=== PATIENT | male | born 1955 | race Caucasian/White ===

== ENCOUNTER 2016-08-09 22:50 | Inpatient (IN) | payer BC ==
--- NOTE | ~2016-08-09 | HP ---
History And Physical [id number] [place]. [address] NAME: PRISCILLA GOODMAN : 57 STATUS : ADM IN [facility]#: [id number] AGE: 61 ADM/REG DATE : 08/09/16 MR#: [id number] REPORT SERV DATE: 08/10/16 DICTATED BY: EZEQUIEL JENKINS DATE: 08/10/16 REPORT STATUS : Draft TRANSCRIBED BY: MODFrederic DATE: 08/10/16 DATE OF ADMISSION: 08/09/2016 CHIEF COMPLAINT: Chest pain. HISTORY OF PRESENT ILLNESS: The patient is a 61-year-old male with known coronary artery disease with remote balloon angioplasty to an unknown vessel many years ago. At approximately 02:00 p.m. in the afternoon on the day of admission, the patient developed acute onset of pressure-like sensation in the central chest with radiation to the neck and jaw. There was later radiation to the left arm to the level of the elbow. The patient was seen in the emergency department, treated with sublingual nitroglycerin with resolution of his chest pain. Initial cardiac enzyme was minimally elevated and the patient was admitted to the Cardiac Intensive Care Unit for non-Q-wave myocardial infarction. The patient has remained pain-free since admission. His troponin has risen to 14.9. He is absolutely asymptomatic at the time of interview and exam. PAST MEDICAL HISTORY: 1. CAD with balloon angioplasty, only to an unknown vessel in the by Dr. Houston Schilling. 2. History of diverticulitis with partial resection of the colon. 3. Hyperlipidemia. 4. GERD. 5. Hypertension. 6. Tobacco abuse. SOCIAL HISTORY: Smokes one pack of cigarettes per day. He has done so for at least for last forty five years. Occasional alcohol use. Denies illicit drug use. REVIEW OF SYSTEMS: Negative for all organ systems except per the history of present illness. FAMILY HISTORY: Noncontributory. ALLERGIES: NO KNOWN DRUG ALLERGIES. PAST SURGICAL HISTORY: Cholecystectomy and partial colectomy due to diverticulitis. PHYSICAL EXAMINATION: VITAL SIGNS: Blood pressure 132/64, pulse 102, respirations 12 and unlabored, saturating 94% on 2 liters nasal cannula, weight 128 kg. GENERAL: Obese, middle-aged male, in no acute distress. HEENT: Normal. NECK: Supple, no JVD or bruit, normal carotid upstroke bilaterally, no thyromegaly. LUNGS: Clear to auscultation and percussion. No wheezes, rales or rhonchi. No use of accessory muscles. CARDIOLOGY: Regular rhythm, normal S1, S2, no thrill, no murmur, rubs or gallops, normal History And Physical [address] [place]. [address] NAME: PRISCILLA GOODMAN : 57 STATUS : ADM IN [facility]#: [id number] AGE: 61 ADM/REG DATE : 08/09/16 MR#: [id number] REPORT SERV DATE: 08/10/16 DICTATED BY: EZEQUIEL JENKINS DATE: 08/10/16 REPORT STATUS : Draft TRANSCRIBED BY: TAMIKA DATE: 08/10/16 PMI. ABDOMEN: Bowel sounds positive, soft, nontender, and nondistended. No masses or aortic bruits. No hepatosplenomegaly or hepatojugular reflux. EXTREMITIES: No edema. Normal pulses. No clubbing or cyanosis. SKIN: Warm and dry, no significant rash. NEUROLOGIC: Alert and oriented x 3. Appropriate mood. EKG: Sinus tachycardia, rate of 106 beats per minute, evidence of old inferior wall myocardial infarction. No acute ST or T wave changes. EKG on admission, sinus rhythm, with a rate of 100 beats per minute, old inferior wall myocardial infarction and lateral ST depression. LABORATORY DATA: Sodium 139, potassium 4.6, chloride 106, BUN 14, creatinine 1.16, GFR 79, glucose 284. WBC 18.8, hemoglobin 14.2, hematocrit 42.6, platelets 283,000. Troponin 14.9. IMPRESSION: Non-Q-wave myocardial infarction - the patient is currently asymptomatic. The patient is currently heparinized. Nitroglycerin in place. Taking atorvastatin. Also on beta tevin. We have recommended cardiac catheterization on Friday, unless the patient has recurrent chest pain symptoms. The risks, benefits, alternatives of the procedure have been discussed with the patient. The patient's questions have been answered. Complications including but not limited to, , myocardial infarction, stroke, life-threatening infection, renal failure, life-threatening arrhythmia, stroke, myocardial infarction, and vascular cardiac injury with potential for emergent surgery have been discussed with the patient. The patient's questions have been answered. The patient voices understanding of these risks and desires to proceed. The patient is instructed to inform the nurse immediately for any recurrent chest pain. Should the patient have progressive recurrent chest pain, we will proceed to catheterization emergently. MICHOACANO/TAMIKA Monique Jenkins M.D. / [id number] CC: Bhakti Gutierrez
--- NOTE | ~2016-08-09 | OP ---
Record Of Operation [facility] [address] [place]. [address] NAME: PRISCILLA GOODMAN : 57 STATUS : DIS IN PAT#: [id number] AGE: 61 ADM/REG DATE : 08/09/16 MR#: [id number] REPORT SERV DATE: 09/25/16 DICTATED BY: PARTHA PAULA DATE: 09/25/16 REPORT STATUS : Draft TRANSCRIBED BY: MODL DATE: 09/25/16 DATE OF PROCEDURE: 08/14/2016 PREOPERATIVE DIAGNOSES: 1. Coronary artery disease with non-ST elevation myocardial infarction. 2. History of previous myocardial infarction with PCI. 3. Hypertension. 4. Hyperlipidemia. 5. Obesity. 6. Tobacco abuse. POSTOPERATIVE DIAGNOSES: 1. Coronary artery disease with non-ST elevation myocardial infarction. 2. History of previous myocardial infarction with PCI. 3. Hypertension. 4. Hyperlipidemia. 5. Obesity. 6. Tobacco abuse. PROCEDURE PERFORMED: 1. Urgent coronary artery bypass grafting x5, left internal mammary artery placed to left anterior descending, reverse saphenous vein graft placed to the first diagonal, reverse saphenous vein graft placed to the first obtuse marginal, right internal mammary artery placed to the second obtuse marginal, reverse saphenous vein graft placed to the posterior descending artery. 2. Bilateral internal mammary artery harvest. 3. Endoscopic vein harvest, saphenous vein from the right leg. 4. Transesophageal echocardiography. ASSISTANTS: Amparo Hankins and Aaron Palmer. ANESTHESIA: General with Dr. Lebron. 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 INDICATIONS: This is a 61-year-old gentleman with a history of tobacco use. He has a history of coronary artery disease. He had previous myocardial infarction with PCI in with Dr. Schilling. He has had no further problems until the week prior to his admission. He began experiencing discomfort in his left arm, neck, and shoulder. He presented to the emergency room, where he was found to have an abnormal EKG and elevated troponin 1. He was admitted to the hospital and medically stabilized. He underwent a cardiac catheterization, which demonstrated significant three-vessel coronary artery disease. We were asked to see the patient for possible coronary artery bypass grafting. His ventricular function was preserved. His ejection fraction was greater than 50%. Preoperative carotid duplex studies demonstrated grade 1 disease bilaterally. Preoperative STS predicted risk of mortality was 0.9%. Morbidity mortality was 11.6%, and this was Record Of Operation [id number] [place]. [address] NAME: PRISCILLA GOODMAN : 57 STATUS : DIS IN PAT#: [id number] AGE: 61 ADM/REG DATE : 08/09/16 MR#: [id number] REPORT SERV DATE: 09/25/16 DICTATED BY: PARTHA PAULA DATE: 09/25/16 REPORT STATUS : Draft TRANSCRIBED BY: TAMIKA DATE: 09/25/16 discussed with the patient. After discussion of the operations, indication, risks, they wished to proceed. FINDINGS AT OPERATION: 1. Cross-clamp time 90 minutes. Total pump time 140 minutes. 2. The LAD was a 1.75 mm moderately diseased vessel. A 2.5 mm OBRIEN was anastomosed to it with good runoff. 3. The first diagonal was 1.75 mm mildly diseased. A 3.5 mm RSVG was anastomosed to it with good runoff. 4. The first obtuse margin was 1.5 mm mildly diseased. A 3.5 mm RSVG was anastomosed to it with good runoff. 5. The second obtuse marginal was 2 mm moderately diseased. A 2.5 mm right internal mammary artery was anastomosed to it with good runoff. The mammary and its pedicle were passed into the pericardial space and brought through the transverse sinus posterior to the aorta to go to the second obtuse marginal. 6. The posterior descending artery was 1.75 mm and heavily diseased. A 3.5 mm RSVG was anastomosed to it with good runoff. 7. The vein quality was good, and all grafts had good Doppler signal at the end of the case. 8. Transesophageal echocardiography during the operation demonstrated good ventricular function without any surgically significant valvulopathy. PATHOLOGIC SPECIMENS: None. DESCRIPTION OF PROCEDURE: The patient was brought to the operating suite. General anesthesia was induced, airway secured with an endotracheal tube. Lines secured by Anesthesia. Stallworth catheter was placed. The patient's chest, abdomen, groin, and legs were prepped with Hibiclens and ChloraPrep and draped with Ioban sterile sheets. The saphenous vein was harvested from the right leg using endoscopic technique. Briefly, the vein was cut directly down upon through a 2 cm incision placed at the medial aspect of the right knee. Then, using the trocars the vessel was dissected from the surrounding subcutaneous tissue and fat. The side branches were identified, ligated, and divided with cautery. Once adequate length of vein had been dissected, a counter incision made up in the groin and in the lower leg. The vein was ligated and divided and brought through the incision. The vein quality was good. The leg was made hemostatic and closed in layers with absorbable suture, and skin closed subcuticular fashion. Then, a midline sternal incision made and the sternum opened with a saw. The left hemithorax was elevated and the endothoracic fascia was incised. The side branches of the left internal mammary artery were clipped and divided with cautery. Once the NIXON was completely dissected, the chest tube was placed in the left pleural cavity and brought out through the skin and secured. Then, the right internal mammary artery was harvested. The show retractor was reversed. The internal thoracic fascia was incised on the right side and the endothoracic fascia around the NIXON was dissected also. Side branch of the right mammary artery were clipped and Record Of Operation [facility] [address] [facility] [place]. [address] NAME: PRISCILLA GOODMAN : 57 STATUS : DIS IN PAT#: [id number] AGE: 61 ADM/REG DATE : 08/09/16 MR#: [id number] REPORT SERV DATE: 09/25/16 DICTATED BY: PARTHA PAULA DATE: 09/25/16 REPORT STATUS : Draft TRANSCRIBED BY: MODL DATE: 09/25/16 divided with cautery. Once the NIXON on the right side was completely dissected, the patient was anticoagulated with heparin and chest tube placed in the right pleural cavity and secured. Next, the David retractor was placed in the pericardium over from the innominate vein to the diaphragm, where it was T'd and tacked to the side of the chest wall. Cannulation pursestring sutures were placed and cannulation was carried out in routine manner. A retrograde cardioplegia cannula was placed in the coronary sinus. When all was in readiness, the patient was placed on cardiopulmonary bypass. The distal targets marked out on the heart as described in the findings. Then, a heart support was placed. The aorta was crossclamped and an initial dose of cold blood cardioplegia solution was given in a combination of antegrade and retrograde fashion, then a retrograde manner following proximal anastomoses. Following the first dose of cardioplegia, the heart was positioned for the PDA graft. Arteriotomy was made. The vein graft was trimmed and anastomosed to it with 7-0 Prolene. The vein graft was measured back to the right side of the ascending aorta where it was divided. We then positioned the heart for the first obtuse marginal graft. Another arteriotomy was made. The vein graft trimmed and anastomosed to it with 7-0 Prolene. This vein graft was measured back to the left side of the ascending aorta, where it was divided. Next, the proximal ends of the two vein grafts were anastomosed to 4.5 mm punch aortotomies with 6-0 Prolene. Another dose of cardioplegia was given and the heart was positioned for the diagonal graft. Arteriotomy was made. The vein graft trimmed and anastomosed to it with 7-0 Prolene. This vein graft was measured back to the left side of the ascending aorta, where it was divided and anastomosed to a 4.5 mm punch aortotomy with 6-0 Prolene. Another dose of cardioplegia was given and we prepared for the second obtuse marginal graft. The right internal mammary artery and its pedicle were then brought into the middle mediastinum through a notch in the pericardium over the SVC. Care was taken to avoid injury to the phrenic nerve on that side. The pedicle was then passed posterior to the aorta and through the transverse sinus to lay adjacent to the second obtuse marginal. The heart was then positioned for the second obtuse marginal graft. Arteriotomy was made. The end of the NIXON was opened and anastomosed to the second obtuse marginal vessel with a running suture of 8-0 Prolene. The endothoracic fascia was tacked to the epicardium. Doppler demonstrated good flow through this graft. Another dose of cardioplegia was given and a bulldog placed on the NIXON pedicle. We then positioned the heart for the LAD anastomosis. Arteriotomy was made in the mid LAD. The left mammary artery brought into the pericardial space through a notch in the pericardium over the pulmonary artery. The NIXON was opened and anastomosed to the LAD with running suture of 8-0 Prolene. The endothoracic fascia was tacked to the epicardium. The patient placed in Trendelenburg and a final dose of warm blood cardioplegia was given in a retrograde fashion. Ventricular and atrial pacing wires were placed. Following the last dose cardioplegia and de-airing of the aorta, the aortic cross clamp was removed. The distal and proximal anastomoses were inspected and made hemostatic. Doppler demonstrated good flow through the grafts. The heart was paced in an AV sequential fashion Record Of Operation [facility] [address] [facility] [place]. [address] NAME: PRISCILLA GOODMAN : 57 STATUS : DIS IN PAT#: [id number] AGE: 61 ADM/REG DATE : 08/09/16 MR#: [id number] REPORT SERV DATE: 09/25/16 DICTATED BY: APRTHA PAULA DATE: 09/25/16 REPORT STATUS : Draft TRANSCRIBED BY: TAMIKA DATE: 09/25/16 and this was later converted to atrial pacing only. Rate was 80 beats per minute. Ventilation was begun. When the heart demonstrated good contractility, it was allowed to fill and eject. When deairing was completed, the patient was taken out of Trendelenburg and ascending aortic vent removed, and these pursestring sutures tied and reinforced. The patient was weaned from cardiopulmonary bypass with minimal inotropic support. The venous cannula was removed and these pursestring sutures tied. GINGER examination demonstrated continued good ventricular function with no significant valvular pathology. Protamine was administered by Anesthesia. Following a period of hemodynamic stability, the aortic cannula was removed and these pursestring sutures tied and reinforced. The patient continued to do well and chest was irrigated copiously with saline. Meticulous hemostasis was obtained. Hemasorb was placed along the cut edges of the sternum. Once hemostasis was assured, the pericardium was draped over the anterior surface of the heart and tacked into position. Doppler demonstrated good flow through the grafts following protamine administration. Then, chest tubes were placed and sternum reapproximated with 8 sternal wires. The clavipectoral fascia and linea alba were closed with #1 Stratafix as was subcutaneous tissue. The skin was closed in subcuticular fashion. The patient tolerated the procedure well. There were no complications. Sponge and needle counts were correct. DISPOSITION: The patient was left intubated, sedated, and transported to the Intensive Care Unit in stable condition. WES/TAMIKA Partha Paula M.D. / [id number] CC: Bhakti Gutierrez MATTHEW RAY
--- NOTE | ~2016-08-09 | PUL ---
[facility] [address] [place]. [address] NAME: PRISCILLA GOODMAN : 57 STATUS : ADM IN PAT#: [id number] AGE: 61 ADM/REG DATE : 08/09/16 MR#: [id number] REPORT SERV DATE: 08/13/16 DICTATED BY: JOSE COMBS DATE: 08/13/16 REPORT STATUS : Draft TRANSCRIBED BY: MODL DATE: 08/13/16 PULMONARY FUNCTION TEST DIAGNOSIS: Coronary artery disease. SPIROMETRY DATA: Flow volume loops are reproducible with a total expiratory time of greater than 6 seconds. This is an adequate study. FEV1 of 2.62 L, 68%. FVC of 69% with a ratio of 74. INTERPRETATION: No airflow obstruction, mild restrictive ventilatory defect, plethysmography would further help define this restrictive defect. Otherwise, clinical correlation is advised. HFQ/MODL Jose Combs MD / [id number] CC: Bhakti Gutierrez MATTHEW RAY
--- NOTE | ~2016-08-09 | CN ---
Consultation Report [facility] [address] [place]. [address] NAME: PRISCILLA GOODMAN : 57 STATUS : ADM IN PAT#: [id number] AGE: 61 ADM/REG DATE : 08/09/16 MR#: [id number] REPORT SERV DATE: 08/16/16 DICTATED BY: SRIRAM DORSEY DATE: 08/16/16 REPORT STATUS : Draft TRANSCRIBED BY: MODL DATE: 08/16/16 CONSULTATION DATE OF CONSULTATION: REASON FOR CONSULTATION: Diabetic management. HISTORY OF PRESENT ILLNESS: A 61-year-old white male with past medical history of coronary artery disease, hypercholesterolemia, hypertension, tobacco abuse, presenting with diabetic management. The patient initially admitted under Dr. Gandhi for chest pain. The patient turned out to have a non-ST elevation [place]. The patient underwent left heart catheterization, which shows 3-vessel disease. The patient underwent CABG without any complications. During the hospital stay, the patient turned out to be diabetic. The patient was started on insulin drip on 08/15/2016. The patient states that he never has been diagnosed as diabetic. He denies any polyuria or polydipsia. The patient states that he initially thought that his increased urine output is because of medications. He denies any symptoms of blurry vision. The patient has no inkling of elevated blood sugar as far as what it does to his body. PAST MEDICAL HISTORY: As above. MEDICATIONS: The patient takes at home are: 1. Aspirin 81 mg p.o. daily. 2. Goody Powder b.i.d. p.r.n. 3. Coreg 12.5 mg p.o. daily. 4. Lisinopril 10 mg p.o. daily. 5. Aleve 440 mg p.o. b.i.d. 6. Pravachol 40 mg p.o. daily. 7. Zantac 150 mg p.o. daily p.r.n. 8. Aspercreme topical daily p.r.n. ALLERGIES: NO KNOWN DRUG ALLERGIES. SOCIAL HISTORY: One pack a day smoker, nondrinker. FAMILY HISTORY: Significant for diabetes, coronary artery disease, and enlarged heart. REVIEW OF SYSTEMS: A 10-point review of systems conducted, which were negative except for above complaints. PHYSICAL EXAMINATION: VITAL SIGNS: Temperature of 100, pulse of 94 respiratory rate 17, BP 128/58, and O2 saturation 94% on 6 L. HEAD AND NECK: Normocephalic, atraumatic. There is a Cordis line on the right side of his Consultation Report [id number] [place]. [address] NAME: PRISCILLA GOODMAN : 57 STATUS : ADM IN PAT#: [id number] AGE: 61 ADM/REG DATE : 08/09/16 MR#: [id number] REPORT SERV DATE: 08/16/16 DICTATED BY: SRIRAM DORSEY. DATE: 08/16/16 REPORT STATUS : Draft TRANSCRIBED BY: TAMIKA DATE: 08/16/16 neck. CARDIOVASCULAR: S1, S2. Regular rate and rhythm, status post sternal wound. LUNGS: Good air entry. No wheeze, rales, or rhonchi. Trachea midline. ABDOMEN: Soft, nontender, nondistended. EXTREMITIES: No clubbing, cyanosis, or edema. NEUROLOGICAL: Awake, alert, and oriented x3. Cranial nerves 2 through 12 grossly intact. LABORATORY DATA: Sodium 137, potassium 4.7, chloride 102, bicarb 32, BUN 19, creatinine 0.85, glucose 114, GFR 110, calcium 8.6, magnesium 2.0. WBC 20, hemoglobin 12.0, hematocrit 37.0, platelets 148. Chest x-ray shows left chest tube removed. No pneumothorax. Minimal bibasilar atelectasis. ASSESSMENT AND PLAN: 1. Diabetic management. Currently, the patient takes 24-hour insulin, total to about 74 units. We will use approximately 30 units of long-acting insulin. In addition, we will also start the patient on a sliding scale level 3 and check blood sugar q.4 hours. Furthermore, we will have HbA1c as well as a lipid panel. More than likely, this patient's medical condition would warrant high-level statin control. 2. Tobacco abuse. The patient has been counseled to quit smoking. The patient would like to have nicotine patch to control possible cravings. 3. Deep venous thrombosis prophylaxis. Continue heparin. DAV/TAMIKA Sriram Dorsey MD / [id number] CC: Bhakti Gutierrez MATTHEW RAY
--- NOTE | ~2016-08-09 | DS ---
Discharge Summary [facility] [address] [place]. [address] NAME: PRISCILLA GOODMAN : 57 STATUS : DIS IN PAT#: [id number] AGE: 61 ADM/REG DATE : 08/09/16 MR#: [id number] REPORT SERV DATE: 08/27/16 DICTATED BY: MARK GANDHI DATE: 08/27/16 REPORT STATUS : Draft TRANSCRIBED BY: TAMIKA DATE: 08/27/16 Data Collection from hospitalization DISCHARGE DIAGNOSES: 1. Non-ST elevation myocardial infarction. 2. Coronary artery disease. 3. Tobacco use. 4. Hypertension. 5. Gastroesophageal reflux disease. 6. Hyperlipidemia. 7. History of diverticulitis. CONSULTATIONS: 1. Garrett Mcmahan N.P. 2. Sriram Carmen MD. PROCEDURES PERFORMED: 1. Cardiac catheterization on 08/12/2016. 2. Coronary artery bypass grafting x4, VasoView harvest from the right leg and bilateral internal mammaries for grafting, and transesophageal echocardiogram on 08/14/2016. 3. Carotid blood flow study on 08/13/2016. MEDICATIONS: Aspirin 81 mg every morning, Lipitor 40 mg at bedtime, Plavix 75 mg daily, Levemir 25 units subcutaneously at bedtime, Humulin R 15 units subcutaneously before meals and at bedtime, Lopressor 25 mg twice a day, Habitrol one patch topically daily as instructed, Roxicodone 10 mg every four hours as needed, Zantac 150 mg daily as needed, and Aspercreme one application topically daily as needed. CONDITION AT DISCHARGE: Stable. DISPOSITION: The patient was discharged home on a low-cholesterol, low-sodium, 1800-calorie cardiac/diabetic diet with activities as instructed. He would follow up with Garrett Mcmahan three to four weeks following discharge and with Dr. Ben Feliz one month following discharge. He would follow up with Dr. Sebas Soriano one week following discharge. HOSPITAL COURSE: This is a 61-year-old man who has coronary artery disease with a remote balloon angioplasty to an unknown vessel many years ago. At approximately 2:00 p.m. on the afternoon of the day of admission, the patient developed the acute onset of pressure-like sensation in the central chest with radiation to the neck and jaw. There was later radiation to the left arm to the level of the elbow. The patient was seen in the emergency department and treated with sublingual nitroglycerin with resolution of his chest pain. Initial cardiac enzymes were minimally elevated. The patient was admitted to the cardiac intensive care unit for non-Q-wave myocardial infarction. He remained pain-free since admission. His troponin tacho to 14.9. He was absolutely asymptomatic at this time and was admitted for further evaluation and treatment. Upon admission, white count was 18.8. Creatinine was 1.16. It was felt that the patient has had a non-Q-wave myocardial infarction. He was currently asymptomatic. He was Discharge Summary [address] [address] NAME: PRISCILLA GOODMAN : 57 STATUS : DIS IN [facility]#: [id number] AGE: 61 ADM/REG DATE : 08/09/16 MR#: [id number] REPORT SERV DATE: 08/27/16 DICTATED BY: MARK GANDHI DATE: 08/27/16 REPORT STATUS : Draft TRANSCRIBED BY: TAMIKA DATE: 08/27/16 currently heparinized. Nitroglycerin was in place. He was taking atorvastatin. He was also on a beta-tevin. It was felt that he would need to undergo a cardiac catheterization. The patient agreed to proceed. Echocardiogram was performed. Sliding scale insulin was started. The following day, he had no chest pain or dyspnea. His lungs were clear. Ejection fraction was 50% on echocardiogram. There was no valve disease seen. He was in a sinus rhythm. IV heparin and nitroglycerin paste were continued. On 08/12/2016, he was taken to the cardiac pathology laboratory technologist where he underwent the above-mentioned procedure by Dr. Jakob Stone. He tolerated this well, and there were no complications. Following this, he was seen by Garrett Mcmahan. Coronary arteriogram had demonstrated tight left main stenosis as well as other left anterior descending circumflex and right coronary artery disease. Left ventricular function by echo was 50%. There was no significant valvulopathy. It was felt that the patient would need to undergo coronary artery bypass grafting. On 08/13/2016, a carotid blood flow study was performed. He had no chest pain or shortness of breath. On 08/14/2016, he was taken to the operating room where he underwent the above-mentioned procedure by Dr. Partha Paula. He tolerated this well, and there were no complications. On postop day #1, he had a few coarse rhonchi in his left lung base. He remained in the ICU at this time. He was being provided pulmonary toilet. White blood cell count was elevated at 17.9 as expected. He did have some pleuritic chest pain. He had no edema. On 08/16/2016, he still had a few rhonchi. Chest x-ray was improving. Creatinine had decreased and he remained in a sinus rhythm. Over the next couple of days, medical therapy continued. Amiodarone prophylaxis was being provided. He was transferred to the floor. He was seen in consultation by Dr. Sriram Carmen regarding diabetes management. During the hospital stay, the patient turned out to be a diabetic. He was started on an insulin drip. He said he had never been diagnosed as diabetic. He denied any polyuria or polydipsia. He said that initially he thought that his increased urine output was because of medications. He denied any symptoms of blurry vision. Heparin continued for DVT prophylaxis. The patient was encouraged to stop smoking. He did request a nicotine patch to control possible cravings. Long-acting insulin was going to be used as well as level 3 sliding scale insulin. Hemoglobin A1c was going to be checked as well as a lipid panel. It was felt that more than likely the patient's medical condition would warrant high-level statin control. A dose of IV Lasix was given. White count was now 13.3. On 08/18/2016, the patient was afebrile. Urine output was adequate. Aspirin, amiodarone, statin, and Plavix were continued. His lungs were clear. He said he felt well. He remained in a sinus rhythm. Discharge instructions were given. Due to his improved and stable condition, he was discharged home with the above-stated instructions. Information collected by: Steffany Ramos I submit the above information as my discharge summary. ADAL/TAMIKA Mark Gandhi M.D. / [id number] Discharge Summary [address] [place]. [address] NAME: PRISCILLA GOODMAN : 57 STATUS : DIS IN PAT#: [id number] AGE: 61 ADM/REG DATE : 08/09/16 MR#: [id number] REPORT SERV DATE: 08/27/16 DICTATED BY: MARK GANDHI DATE: 08/27/16 REPORT STATUS : Draft TRANSCRIBED BY: MODL DATE: 08/27/16 CC: Bhakti Gutierrez MATTHEW RAY Michael S. Loga N.PAnnalise
--- NOTE | ~2016-08-09 | CN ---
Consultation Report [facility] [address] [place]. [address] NAME: PRISCILLA GOODMAN : 57 STATUS : ADM IN PAT#: [id number] AGE: 61 ADM/REG DATE : 08/09/16 MR#: [id number] REPORT SERV DATE: 08/12/16 DICTATED BY: GARRETT HERNANDEZ DATE: 08/12/16 REPORT STATUS : Draft TRANSCRIBED BY: MODL DATE: 08/12/16 DATE OF CONSULTATION: REASON FOR CONSULTATION: Multivessel coronary artery disease in the context of recent non-ST elevation myocardial infarction as well as tight left main coronary artery stenosis. CHIEF COMPLAINT: Chest pain, last Friday. HISTORY OF PRESENT ILLNESS: This is a pleasant 61-year-old, obese gentleman with prior history of hypertension. He has a family history positive for coronary artery disease. He had prior PCI with plain old balloon angioplasty in the by Dr. Schilling, and since then has had no further symptoms until last week. He then began to have what he thought was indigestion in his anterior chest and radiated up into his shoulder, neck, and left arm. He had associated shortness of breath and radiation of pain into his back, which was progressive. He came to the emergency department and there was found to have abnormal EKG as well as elevated troponin I. He was hospitalized and further evaluation with coronary arteriogram today demonstrated tight left main stenosis as well as other left anterior descending circumflex and right coronary artery disease. His left ventricular function by echo was 50%. There was no significant valvulopathy. We were asked to see and evaluate for urgent coronary artery bypass grafting and this is discussed with the patient and his in the room today. PRIOR MEDICAL HISTORY: 1. Coronary artery disease. 2. Gastroesophageal reflux disease. 3. Dyslipidemia. 4. Probable peripheral arterial disease with lower extremity claudication. 5. Hypertension. 6. Obesity. 7. Tobacco abuse. PRIOR SURGICAL HISTORY: Significant for colorectal resection with ostomy in September 2011 with reversal of the colostomy also in that year. He also has prior history of right total knee arthroplasty and previous angioplasty in the . ALLERGIES: NONE KNOWN. MEDICATIONS: Include aspirin, carvedilol, lisinopril, naproxen, pravastatin, ranitidine, Aspercreme. FAMILY HISTORY: Significant for coronary artery disease. SOCIAL HISTORY: Significant for smoking, up to two packs per day starting at age 19 and continuing to the present hospitalization. He is currently smoking about half pack per day before his admission to the hospital. He is employed by [employer]. 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. 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 REVIEW OF SYSTEMS: GENERAL: Negative for any recent weight change, fevers, chills, or malaise. ENT: Positive for upper dentures. Negative for cataracts or glaucoma. No difficulty eating, chewing, or swallowing. RESPIRATORY: Positive for some shortness of breath. Negative for hemoptysis. Negative for COPD. Positive for cigarette smoking. CV: As above. Denies any palpitations, paroxysmal nocturnal dyspnea, orthopnea, syncope, or near syncope. GI: Positive for gastroesophageal reflux. Negative for diarrhea, constipation, bleeding at stool or vomiting blood. : Negative. MUSCULOSKELETAL: Negative. CIRCULATORY: He tells me he has been having pain in his legs with walking that is relieved with rest, which is suspicious for claudicatory pain. NEURO/PSYCH: Negative for any abnormal thought processes, negative for prior stroke or TIA symptoms. Negative for any history of tremors. INTEGUMENTARY: Negative. PHYSICAL EXAMINATION: GENERAL: He is an obese, middle-age male, in no acute distress. His height is 185.42 cm, weight 127.6 kg. VITAL SIGNS: Blood pressure is 152/85, temperature 97.7, pulse 82, respirations 17, saturation 98% on room air. HEENT: Normocephalic, atraumatic. His pupils are equal, round, and reactive to light and accommodation. Sclerae are clear, conjunctivae pink. Oral and buccal mucosa are pink and moist. He has lower teeth in good condition and upper dentures. Mallampati class III airway. NECK: Supple. No restricted range of motion. No carotid bruits. No jugular venous distention. CHEST: Clear to auscultation, no use of accessory muscles, no chest wall tenderness or deformity. BREASTS: Not examined. CV: Regular rate and rhythm without murmur or rub. He has palpable central pulses. His lower extremities are cool to the touch and he has diminished pulses in both feet, but he has palpable posterior tibial and dorsalis pedis pulses in both feet. No clubbing, cyanosis, or edema. No varicosities. ABDOMEN: Soft, obese, nontender with normoactive bowel sounds. No hepatosplenomegaly. /RECTAL: Declined. MUSCULOSKELETAL: No kyphoscoliosis. No asymmetry. NEUROLOGIC: He is alert and oriented. No focal neurologic deficits. No tremors and mood is appropriate. SKIN, HAIR, AND NAILS: Good grooming. No lesions, masses, or rashes. Consultation Report [facility] [id number] [place]. [address] NAME: PRISCILLA GOODMAN : 57 STATUS : ADM IN [facility]#: [id number] AGE: 61 ADM/REG DATE : 08/09/16 MR#: [id number] REPORT SERV DATE: 08/12/16 DICTATED BY: GARRETT HERNANDEZ DATE: 08/12/16 REPORT STATUS : Draft TRANSCRIBED BY: TAMIKA DATE: 08/12/16 DATA: His coronary arteriogram which I reviewed today showing disease as described, which is flow limiting. His echocardiogram results reviewed showing no valvulopathy and mildly diminished left ventricular function. His EKG shows sinus rhythm with Q-waves in lead 3 and aVF. His troponin I is elevated at 13.10. CBC shows WBC is 9.8, hemoglobin 14.7 g, hematocrit 44.2%, platelets 275,000. His INR was 1.1. Electrolyte profile is unremarkable. His lipid profile also unremarkable. IMPRESSION: 1. Three-vessel flow-limiting coronary artery disease with recent [id number] myocardial infarction, comfortable at present. 2. Hypertension. 3. Obesity. 4. Tobacco abuse. 5. Probable peripheral arterial disease with claudication. PLAN: Discussed with the patient and his family today, includes coronary artery bypass grafting at this admission. We talked about the surgery, usual perioperative course, indications, benefits, and serious risks which include things like bleeding, need for blood or blood product transfusion and their attendant risks, damage to the kidneys including kidney failure and dialysis, damage to the liver or the lungs, infection including deep sternal infection, mediastinitis, heart attack, stroke, abnormal heart rhythm, and even . The patient indicates his understanding and is willing to proceed. Using Society of Thor[employer] database, risk of mortality is predicted at 0.903%, morbidity or mortality of 11.661%. This was discussed with the patient and his today. He is eager to get on with his surgery as soon as reasonably possible and we will discuss with the surgeons as to timing of this likely this week. We appreciate the opportunity to participate in this pleasant gentleman's care. MSL/MODL Garrett Hernandez N.P. / [id number] CC: Bhakti Lincoln MATTHEW RAY
[2016-08-09 22:42] LABS: BASOPHILS 0.1 %; BASOPHILS ABSOLUTE 0.01 10/3/uL (0.0-0.16); EOSINOPHILS 0 %; ER CBC TAT 0 Hrs 03 Mins; IMMATURE GRANULOCYTES 0.5 %; IMMATURE GRANULOCYTES ABSOLUTE 0.06 10/3/uL (0.0-0.11); LYMPHOCYTES ABSOLUTE 1.24 10/3/uL (0.67-4.30); MEAN CORPUSCULAR HEMOGLOB 31.5 pg (26.0-34.0); MEAN PLATELET VOLUME 10.2 fL (9.2-13.0); MONOCYTES 0.9 %; NEUTROPHILS 87.5 %; NEUTROPHILS ABSOLUTE 9.91 10/3/uL (2.02-8.40); RBC DISTRIBUTION WIDTH 13.8 % (12.0-16.0); WHITE BLOOD CELLS 11.3 10/3/uL (4.5-10.5)
[2016-08-09 22:44] LABS: HEMATOCRIT 43.3 % (40.0-51.0); MANUAL DIFF NO %; MEAN CORPUS HGB CONC 34.6 g/dL (32.0-36.0); PLATELET COUNT 282 10/3/uL (150-400); RED CELL COUNT 4.76 10/6/uL (4.7-6.1)
[2016-08-09 22:49] LABS: INTERNATIONAL NORMAL RATI 1.1 UNITS (-); PROTIME (NOT ORD) 14.1 SEC (12.0-14.5)
[~2016-08-09 22:50] MED LIST: ALEVE220 MG PO; ASAB PO; ASPERCREME TOP; AUG875 PO; Aspirin PO; COREG12 PO; COREG6 PO; GOODY'S EX-STR1 EAC1 PO; HALF81 PO; LOP25 PO; OCEAN NAS; PCET PO; PR25 PO; PRAVACHOL40 MG PO; PRIN20 PO; ZANTAC 150 PO; ZESTRIL20 MG PO; [UNRECOGNIZED DRUG - REMARK]
[2016-08-09 22:59] LABS: ALBUMIN 3.9 G/DL (3.5-5.0); ALKALINE PHOSPHATASE 66 U/L (45-117); BUN (BLOOD UREA NITROGEN) 14 MG/DL (6-23); CALCIUM, SERUM 10.1 MG/DL (8.5-10.4); CHLORIDE, SERUM 106 MMOL/L (96-112); CO2 (CARBON DIOXIDE) 24 MMOL/L (24-34); CREATININE 1.16 MG/DL (0.70-1.30); GFR AFRICAN AMERICAN 79 ML/MIN (>=60); GFR NON AFRICAN AMERICAN 68 ML/MIN (>=60); POTASSIUM, SERUM 4.6 MMOL/L (3.5-5.3); SGPT(ALT) 35 U/L (5-65); SODIUM, SERUM 139 MMOL/L (135-148); TOTAL PROTEIN 7.9 G/DL (6.0-8.5)
[2016-08-09 23:00] LABS: GLUCOSE, SERUM 284 MG/DL (60-99); TOTAL BILIRUBIN 0.2 MG/DL (0-1.2)
[2016-08-09 23:01] LABS: SGOT(AST) 29 U/L (5-40); TROPONIN I 0.17 NG/ML (<0.05)
[2016-08-10 07:48] LABS: BASOPHILS 0.1 %; BASOPHILS ABSOLUTE 0.01 10/3/uL (0.0-0.16); EOSINOPHILS 0 %; HEMATOCRIT 42.6 % (40.0-51.0); HEMOGLOBIN 14.2 g/dL (13.6-17.8); IMMATURE GRANULOCYTES 0.3 %; IMMATURE GRANULOCYTES ABSOLUTE 0.06 10/3/uL (0.0-0.11); LYMPHOCYTES 9.1 %; MEAN CORPUS HGB CONC 33.3 g/dL (32.0-36.0); MEAN CORPUSCULAR HEMOGLOB 31.1 pg (26.0-34.0); MEAN CORPUSCULAR VOLUME 93.2 fL (80-100); MEAN PLATELET VOLUME 10.3 fL (9.2-13.0); MONOCYTES 5.8 %; MONOCYTES ABSOLUTE 1.09 10/3/uL (0.21-1.20); NEUTROPHILS 84.7 %; NEUTROPHILS ABSOLUTE 15.92 10/3/uL (2.02-8.40); PLATELET COUNT 283 10/3/uL (150-400); RBC DISTRIBUTION WIDTH 13.8 % (12.0-16.0); RED CELL COUNT 4.57 10/6/uL (4.7-6.1)
[2016-08-10 07:51] LABS: MANUAL DIFF NO %; WHITE BLOOD CELLS 18.8 10/3/uL (4.5-10.5)
[2016-08-10 08:08] LABS: CHOL/HDL RATIO(NOT ORDER) 3.3 (0-5)
[2016-08-10 08:09] LABS: TROPONIN I 14.9 NG/ML (<0.05)
[2016-08-12 04:51] LABS: BASOPHILS 0.5 %; BASOPHILS ABSOLUTE 0.05 10/3/uL (0.0-0.16); EOSINOPHILS 3.3 %; EOSINOPHILS ABSOLUTE 0.32 10/3/uL (0.0-0.53); HEMATOCRIT 44.2 % (40.0-51.0); HEMOGLOBIN 14.7 g/dL (13.6-17.8); IMMATURE GRANULOCYTES 0.3 %; IMMATURE GRANULOCYTES ABSOLUTE 0.03 10/3/uL (0.0-0.11); LYMPHOCYTES 33.5 %; MEAN CORPUS HGB CONC 33.3 g/dL (32.0-36.0); MEAN CORPUSCULAR HEMOGLOB 30.6 pg (26.0-34.0); MEAN CORPUSCULAR VOLUME 92.1 fL (80-100); MEAN PLATELET VOLUME 10.6 fL (9.2-13.0); MONOCYTES 8.1 %; NEUTROPHILS 54.3 %; NEUTROPHILS ABSOLUTE 5.34 10/3/uL (2.02-8.40); PLATELET COUNT 275 10/3/uL (150-400); RBC DISTRIBUTION WIDTH 14.2 % (12.0-16.0)
[2016-08-12 04:52] LABS: MANUAL DIFF NO %; WHITE BLOOD CELLS 9.8 10/3/uL (4.5-10.5)
[2016-08-12 04:53] LABS: INTERNATIONAL NORMAL RATI 1.1 UNITS (-); PROTIME (NOT ORD) 14.1 SEC (12.0-14.5)
[2016-08-12 05:04] LABS: BUN (BLOOD UREA NITROGEN) 16 MG/DL (6-23); CHLORIDE, SERUM 110 MMOL/L (96-112); CHOL/HDL RATIO(NOT ORDER) 2.5 (0-5); CHOLESTEROL 109 MG/DL (< 200); CO2 (CARBON DIOXIDE) 26 MMOL/L (24-34); CREATININE 0.76 MG/DL (0.70-1.30); GFR AFRICAN AMERICAN 115 ML/MIN (>=60); GFR NON AFRICAN AMERICAN 99 ML/MIN (>=60); HDL CHOLESTEROL 43 MG/DL (> 39); LDL CHOLESTEROL 37 MG/DL (< 130); NON-HDL CHOLESTEROL 66 MG/DL (< 160); POTASSIUM, SERUM 3.9 MMOL/L (3.5-5.3); SODIUM, SERUM 138 MMOL/L (135-148)
[2016-08-12 05:05] LABS: CALCIUM, SERUM 8.9 MG/DL (8.5-10.4); GLUCOSE, SERUM 114 MG/DL (60-99); TRIGLYCERIDE 149 MG/DL (< 150)
[2016-08-12 23:05] LABS: BASOPHILS 0.4 %; BASOPHILS ABSOLUTE 0.04 10/3/uL (0.0-0.16); EOSINOPHILS 2.3 %; EOSINOPHILS ABSOLUTE 0.23 10/3/uL (0.0-0.53); HEMATOCRIT 42.4 % (40.0-51.0); HEMOGLOBIN 14.2 g/dL (13.6-17.8); IMMATURE GRANULOCYTES 0.2 %; IMMATURE GRANULOCYTES ABSOLUTE 0.02 10/3/uL (0.0-0.11); LYMPHOCYTES 25.7 %; LYMPHOCYTES ABSOLUTE 2.52 10/3/uL (0.67-4.30); MEAN CORPUS HGB CONC 33.5 g/dL (32.0-36.0); MEAN CORPUSCULAR VOLUME 92.6 fL (80-100); MONOCYTES 7.1 %; NEUTROPHILS 64.3 %; PLATELET COUNT 235 10/3/uL (150-400); RBC DISTRIBUTION WIDTH 14.1 % (12.0-16.0); RED CELL COUNT 4.58 10/6/uL (4.7-6.1); WHITE BLOOD CELLS 9.8 10/3/uL (4.5-10.5)
[2016-08-12 23:12] LABS: INTERNATIONAL NORMAL RATI 1.1 UNITS (-); PARTIAL THROMBO TIME 26.1 SEC (22.5-37.2); PROTIME (NOT ORD) 13.9 SEC (12.0-14.5)
[2016-08-12 23:13] LABS: MANUAL DIFF NO %
[2016-08-13 04:53] LABS: BASOPHILS 0.4 %; BASOPHILS ABSOLUTE 0.04 10/3/uL (0.0-0.16); EOSINOPHILS 3.2 %; EOSINOPHILS ABSOLUTE 0.31 10/3/uL (0.0-0.53); HEMATOCRIT 41.8 % (40.0-51.0); IMMATURE GRANULOCYTES 0.2 %; IMMATURE GRANULOCYTES ABSOLUTE 0.02 10/3/uL (0.0-0.11); LYMPHOCYTES 29.9 %; LYMPHOCYTES ABSOLUTE 2.87 10/3/uL (0.67-4.30); MEAN CORPUS HGB CONC 33.5 g/dL (32.0-36.0); MEAN CORPUSCULAR HEMOGLOB 30.8 pg (26.0-34.0); MEAN CORPUSCULAR VOLUME 91.9 fL (80-100); MEAN PLATELET VOLUME 10.6 fL (9.2-13.0); MONOCYTES 8.7 %; MONOCYTES ABSOLUTE 0.84 10/3/uL (0.21-1.20); NEUTROPHILS 57.6 %; NEUTROPHILS ABSOLUTE 5.53 10/3/uL (2.02-8.40); PLATELET COUNT 238 10/3/uL (150-400); RBC DISTRIBUTION WIDTH 14.1 % (12.0-16.0); RED CELL COUNT 4.55 10/6/uL (4.7-6.1); WHITE BLOOD CELLS 9.6 10/3/uL (4.5-10.5)
[2016-08-13 04:58] LABS: MANUAL DIFF NO %
[2016-08-13 05:07] LABS: A/G RATIO 0.9 (0.7-1.9); ALBUMIN 3.3 G/DL (3.5-5.0); ALKALINE PHOSPHATASE 59 U/L (45-117); BUN (BLOOD UREA NITROGEN) 18 MG/DL (6-23); CHLORIDE, SERUM 106 MMOL/L (96-112); CO2 (CARBON DIOXIDE) 27 MMOL/L (24-34); CREATININE 0.83 MG/DL (0.70-1.30); GFR AFRICAN AMERICAN 111 ML/MIN (>=60); GFR NON AFRICAN AMERICAN 96 ML/MIN (>=60); GLOBULIN 3.7 G/DL (2.5-4.1); SGOT(AST) 45 U/L (5-40); SGPT(ALT) 57 U/L (5-65); SODIUM, SERUM 142 MMOL/L (135-148); TOTAL BILIRUBIN 0.3 MG/DL (0-1.2)
[2016-08-13 05:08] LABS: GLUCOSE, SERUM 90 MG/DL (60-99)
[2016-08-13 05:13] LABS: INTERNATIONAL NORMAL RATI 1.1 UNITS (-); PARTIAL THROMBO TIME 26.9 SEC (22.5-37.2); PROTIME (NOT ORD) 13.8 SEC (12.0-14.5)
[2016-08-14 11:33] LABS: ASCORBIC ACID (UR NOT ORDER) 40 (NEG); BILIRUBIN, URINE NEGATIVE (NEG); KETONE, URINE NEGATIVE (NEG); LEUKOCYTE ESTERASE(NOT OR NEG (NEG); WBC (NOT ORDERED) (RFLEX) < 1 (0-5)
[2016-08-14 15:19] LABS: BE (BASE EXCESS) -4.9 MEQ/L (0 +/- 2.5); CARBOXYHEMOGLOBIN 0.3 % (0-3); HCO3 (ACTUAL BICARBONATE) 21.7 MEQ/L (23-27); HEMOBLOGIN CONTENT 14.3 G/DL (14-18); INSTRUMENT SERIAL # 11843; METHEMOGLOBIN 0.6 % (0-3); MODE SIMV; O2 CONTENT 19.2 VOL% (18-24); OPERATOR ID 13715; PCO2 (CO2 TENSION) 46 MMHG (35-45); PO2 (O2 TENSION) 97 MMHG (79-93); SAMPLE Arterial; TIDAL VOLUME 800 ML; pH 7.29 (7.37-7.43)
[2016-08-14 15:31] LABS: HEMATOCRIT 39.8 % (40.0-51.0); HEMOGLOBIN 13.4 g/dL (13.6-17.8)
[2016-08-14 15:32] LABS: PLATELET COUNT 129 10/3/uL (150-400)
[2016-08-14 15:39] LABS: INTERNATIONAL NORMAL RATI 1.2 UNITS (-); PARTIAL THROMBO TIME 25.9 SEC (22.5-37.2)
[2016-08-14 15:42] LABS: BUN (BLOOD UREA NITROGEN) 18 MG/DL (6-23); CALCIUM, SERUM 8.7 MG/DL (8.5-10.4); CHLORIDE, SERUM 112 MMOL/L (96-112); CO2 (CARBON DIOXIDE) 28 MMOL/L (24-34); CREATININE 1.05 MG/DL (0.70-1.30); GFR AFRICAN AMERICAN 89 ML/MIN (>=60); GFR NON AFRICAN AMERICAN 77 ML/MIN (>=60); GLUCOSE, SERUM 106 MG/DL (60-99); POTASSIUM, SERUM 4.3 MMOL/L (3.5-5.3); SODIUM, SERUM 143 MMOL/L (135-148)
[2016-08-14 19:57] LABS: INSTRUMENT SERIAL # 11843; PCO2 (CO2 TENSION) 51 MMHG (35-45); pH 7.34 (7.37-7.43)
[2016-08-14 19:58] LABS: CARBOXYHEMOGLOBIN 0.2 % (0-3); HCO3 (ACTUAL BICARBONATE) 26.6 MEQ/L (23-27); HEMOBLOGIN CONTENT 14.7 G/DL (14-18); METHEMOGLOBIN 0.4 % (0-3); O2 CONTENT 19.7 VOL% (18-24); OPERATOR ID 13744; PO2 (O2 TENSION) 88 MMHG (79-93); SAMPLE Arterial
[2016-08-14 21:21] LABS: HEMOGLOBIN 13.4 g/dL (13.6-17.8)
[2016-08-14 21:39] LABS: BUN (BLOOD UREA NITROGEN) 20 MG/DL (6-23); CALCIUM, SERUM 8.6 MG/DL (8.5-10.4); CHLORIDE, SERUM 112 MMOL/L (96-112); CO2 (CARBON DIOXIDE) 26 MMOL/L (24-34); CREATININE 0.85 MG/DL (0.70-1.30); GFR AFRICAN AMERICAN 110 ML/MIN (>=60); GFR NON AFRICAN AMERICAN 95 ML/MIN (>=60); GLUCOSE, SERUM 122 MG/DL (60-99); POTASSIUM, SERUM 4.4 MMOL/L (3.5-5.3); SODIUM, SERUM 143 MMOL/L (135-148)
[2016-08-15 03:25] LABS: BASOPHILS 0 %; EOSINOPHILS 0 %; HEMATOCRIT 39.7 % (40.0-51.0); HEMOGLOBIN 13.3 g/dL (13.6-17.8); IMMATURE GRANULOCYTES 0.4 %; IMMATURE GRANULOCYTES ABSOLUTE 0.07 10/3/uL (0.0-0.11); LYMPHOCYTES 4.6 %; LYMPHOCYTES ABSOLUTE 0.83 10/3/uL (0.67-4.30); MEAN CORPUS HGB CONC 33.5 g/dL (32.0-36.0); MEAN CORPUSCULAR HEMOGLOB 31.2 pg (26.0-34.0); MEAN CORPUSCULAR VOLUME 93.2 fL (80-100); MEAN PLATELET VOLUME 10.5 fL (9.2-13.0); MONOCYTES 4.2 %; MONOCYTES ABSOLUTE 0.76 10/3/uL (0.21-1.20); NEUTROPHILS 90.8 %; NEUTROPHILS ABSOLUTE 16.27 10/3/uL (2.02-8.40); PLATELET COUNT 158 10/3/uL (150-400); RED CELL COUNT 4.26 10/6/uL (4.7-6.1)
[2016-08-15 03:29] LABS: MANUAL DIFF NO %; WHITE BLOOD CELLS 17.9 10/3/uL (4.5-10.5)
[2016-08-15 03:39] LABS: BUN (BLOOD UREA NITROGEN) 19 MG/DL (6-23); CALCIUM, SERUM 8.4 MG/DL (8.5-10.4); CHLORIDE, SERUM 109 MMOL/L (96-112); CO2 (CARBON DIOXIDE) 30 MMOL/L (24-34); CREATININE 0.73 MG/DL (0.70-1.30); GFR AFRICAN AMERICAN 117 ML/MIN (>=60); GFR NON AFRICAN AMERICAN 101 ML/MIN (>=60); GLUCOSE, SERUM 111 MG/DL (60-99); POTASSIUM, SERUM 4.1 MMOL/L (3.5-5.3); SODIUM, SERUM 144 MMOL/L (135-148)
[2016-08-15 15:39] LABS: HEMATOCRIT 36.8 % (40.0-51.0); HEMOGLOBIN 12.3 g/dL (13.6-17.8)
[2016-08-16 03:37] LABS: BASOPHILS 0.1 %; BASOPHILS ABSOLUTE 0.01 10/3/uL (0.0-0.16); EOSINOPHILS 0.1 %; EOSINOPHILS ABSOLUTE 0.02 10/3/uL (0.0-0.53); IMMATURE GRANULOCYTES 0.5 %; IMMATURE GRANULOCYTES ABSOLUTE 0.09 10/3/uL (0.0-0.11); LYMPHOCYTES 12.5 %; LYMPHOCYTES ABSOLUTE 2.49 10/3/uL (0.67-4.30); MEAN CORPUS HGB CONC 32.4 g/dL (32.0-36.0); MEAN CORPUSCULAR HEMOGLOB 30.9 pg (26.0-34.0); MEAN CORPUSCULAR VOLUME 95.4 fL (80-100); MEAN PLATELET VOLUME 11.1 fL (9.2-13.0); MONOCYTES 11.9 %; MONOCYTES ABSOLUTE 2.37 10/3/uL (0.21-1.20); NEUTROPHILS 74.9 %; NEUTROPHILS ABSOLUTE 15.02 10/3/uL (2.02-8.40); PLATELET COUNT 148 10/3/uL (150-400); RBC DISTRIBUTION WIDTH 14.3 % (12.0-16.0); RED CELL COUNT 3.88 10/6/uL (4.7-6.1)
[2016-08-16 03:39] LABS: MANUAL DIFF NO %
[2016-08-16 03:53] LABS: BUN (BLOOD UREA NITROGEN) 19 MG/DL (6-23); CALCIUM, SERUM 8.6 MG/DL (8.5-10.4); CHLORIDE, SERUM 102 MMOL/L (96-112); CO2 (CARBON DIOXIDE) 33 MMOL/L (24-34); CREATININE 0.85 MG/DL (0.70-1.30); GFR AFRICAN AMERICAN 110 ML/MIN (>=60); GFR NON AFRICAN AMERICAN 95 ML/MIN (>=60); GLUCOSE, SERUM 114 MG/DL (60-99); POTASSIUM, SERUM 4.7 MMOL/L (3.5-5.3); SODIUM, SERUM 137 MMOL/L (135-148)
[2016-08-17 04:55] LABS: BASOPHILS 0.2 %; BASOPHILS ABSOLUTE 0.03 10/3/uL (0.0-0.16); EOSINOPHILS 0.5 %; EOSINOPHILS ABSOLUTE 0.06 10/3/uL (0.0-0.53); HEMATOCRIT 36.2 % (40.0-51.0); HEMOGLOBIN 11.9 g/dL (13.6-17.8); IMMATURE GRANULOCYTES 0.3 %; IMMATURE GRANULOCYTES ABSOLUTE 0.04 10/3/uL (0.0-0.11); LYMPHOCYTES 21.7 %; LYMPHOCYTES ABSOLUTE 2.88 10/3/uL (0.67-4.30); MEAN CORPUS HGB CONC 32.9 g/dL (32.0-36.0); MEAN CORPUSCULAR HEMOGLOB 30.8 pg (26.0-34.0); MEAN CORPUSCULAR VOLUME 93.8 fL (80-100); MEAN PLATELET VOLUME 11.1 fL (9.2-13.0); MONOCYTES 14.2 %; MONOCYTES ABSOLUTE 1.89 10/3/uL (0.21-1.20); NEUTROPHILS 63.1 %; NEUTROPHILS ABSOLUTE 8.37 10/3/uL (2.02-8.40); PLATELET COUNT 157 10/3/uL (150-400); RBC DISTRIBUTION WIDTH 14.3 % (12.0-16.0); RED CELL COUNT 3.86 10/6/uL (4.7-6.1); WHITE BLOOD CELLS 13.3 10/3/uL (4.5-10.5)
[2016-08-17 04:57] LABS: MANUAL DIFF NO %
[2016-08-17 05:01] LABS: INTERNATIONAL NORMAL RATI 1.2 UNITS (-); PROTIME (NOT ORD) 14.9 SEC (12.0-14.5)
[2016-08-17 05:19] LABS: CHLORIDE, SERUM 100 MMOL/L (96-112); CO2 (CARBON DIOXIDE) 29 MMOL/L (24-34); CREATININE 0.65 MG/DL (0.70-1.30); GFR AFRICAN AMERICAN 123 ML/MIN (>=60); GFR NON AFRICAN AMERICAN 106 ML/MIN (>=60); GLUCOSE, SERUM 99 MG/DL (60-99); HDL CHOLESTEROL 41 MG/DL (> 39); POTASSIUM, SERUM 4.4 MMOL/L (3.5-5.3); SODIUM, SERUM 134 MMOL/L (135-148)
[2016-08-17 05:23] LABS: BUN (BLOOD UREA NITROGEN) 15 MG/DL (6-23); CHOL/HDL RATIO(NOT ORDER) 1.9 (0-5); CHOLESTEROL 78 MG/DL (< 200); LDL CHOLESTEROL 19 MG/DL (< 130); NON-HDL CHOLESTEROL 37 MG/DL (< 160); TRIGLYCERIDE 93 MG/DL (< 150)
[2016-08-18 05:08] LABS: BASOPHILS 0.3 %; BASOPHILS ABSOLUTE 0.04 10/3/uL (0.0-0.16); EOSINOPHILS ABSOLUTE 0.24 10/3/uL (0.0-0.53); HEMATOCRIT 37.9 % (40.0-51.0); HEMOGLOBIN 12.6 g/dL (13.6-17.8); IMMATURE GRANULOCYTES 0.3 %; IMMATURE GRANULOCYTES ABSOLUTE 0.04 10/3/uL (0.0-0.11); LYMPHOCYTES 24.5 %; LYMPHOCYTES ABSOLUTE 2.91 10/3/uL (0.67-4.30); MEAN CORPUS HGB CONC 33.2 g/dL (32.0-36.0); MEAN CORPUSCULAR HEMOGLOB 30.8 pg (26.0-34.0); MEAN CORPUSCULAR VOLUME 92.7 fL (80-100); MEAN PLATELET VOLUME 11.1 fL (9.2-13.0); MONOCYTES 13.1 %; MONOCYTES ABSOLUTE 1.56 10/3/uL (0.21-1.20); NEUTROPHILS 59.8 %; NEUTROPHILS ABSOLUTE 7.08 10/3/uL (2.02-8.40); PLATELET COUNT 191 10/3/uL (150-400); RBC DISTRIBUTION WIDTH 14.1 % (12.0-16.0); RED CELL COUNT 4.09 10/6/uL (4.7-6.1); WHITE BLOOD CELLS 11.9 10/3/uL (4.5-10.5)
[2016-08-18 05:09] LABS: MANUAL DIFF NO %
[2016-08-18 05:20] LABS: BUN (BLOOD UREA NITROGEN) 17 MG/DL (6-23); CALCIUM, SERUM 9.1 MG/DL (8.5-10.4); CHLORIDE, SERUM 99 MMOL/L (96-112); CO2 (CARBON DIOXIDE) 32 MMOL/L (24-34); CREATININE 0.87 MG/DL (0.70-1.30); GFR AFRICAN AMERICAN 109 ML/MIN (>=60); GFR NON AFRICAN AMERICAN 94 ML/MIN (>=60); GLUCOSE, SERUM 93 MG/DL (60-99); POTASSIUM, SERUM 4.5 MMOL/L (3.5-5.3); SODIUM, SERUM 136 MMOL/L (135-148)
[2016-08-18] MEDS ORDERED: LIPITOR40 PO (13:01)
[2016-08-18] MEDS ORDERED: LOP25 PO (13:01)
[2016-08-18] MEDS ORDERED: PLAVIX PO (13:01)
[2016-08-18] MEDS ORDERED: HABIT14 TOP (13:02)
[2016-08-18] MEDS ORDERED: HUMULIN R1 ML SC (13:05)
[2016-08-18] MEDS ORDERED: LEVEMIR SC (13:05)
[2016-08-18] MEDS ORDERED: OXYCOD PO (13:06)
[2016-12-06] MEDS ORDERED: L20 PO (14:26)
[2016-12-06] MEDS ORDERED: LOP50 PO (14:26)
[2016-12-06] MEDS ORDERED: ALEVE220 MG PO (14:26)
[2016-12-06] MEDS ORDERED: PAX20 PO (14:27)
== END 2016-08-18 14:36 | disposition home or self-care (01) | DRG 234 ==
LOC: ER 22:50 → CCU 23:40 → CVICU 08-14 14:07 → 5NO 08-16 17:05
PROVIDERS: Emergency Medicine; Internal Medicine Cardiovascular Disease; Thoracic Surgery (Cardiothoracic Vascular Surgery)
PROC: 4A023N7 Measurement of Cardiac Sampling and Pressure, Left Heart, Percutaneous Approach (ICD-10-PCS; principal; 2016-08-12)
PROC: 021209W Bypass Coronary Artery, Three Arteries from Aorta with Autologous Venous Tissue, Open Approach (ICD-10-PCS; 2016-08-12)
PROC: B2051ZZ Plain Radiography of Left Heart using Low Osmolar Contrast (ICD-10-PCS; 2016-08-12)
PROC: B2011ZZ Plain Radiography of Multiple Coronary Arteries using Low Osmolar Contrast (ICD-10-PCS; 2016-08-12)
PROC: 02100Z8 Bypass Coronary Artery, One Artery from Right Internal Mammary, Open Approach (ICD-10-PCS; 2016-08-12)
PROC: 02100Z9 Bypass Coronary Artery, One Artery from Left Internal Mammary, Open Approach (ICD-10-PCS; 2016-08-14)
PROC: 06BP4ZZ Excision of Right Saphenous Vein, Percutaneous Endoscopic Approach (ICD-10-PCS; 2016-08-14)
PROC: 5A1221Z Performance of Cardiac Output, Continuous (ICD-10-PCS; 2016-08-14)
PROC: B246ZZ4 Ultrasonography of Right and Left Heart, Transesophageal (ICD-10-PCS; 2016-08-14)
DX: I21.4 Non-ST elevation (NSTEMI) myocardial infarction (principal); J98.4 Other disorders of lung; I10 Essential (primary) hypertension; J98.11 Atelectasis; I25.10 Atherosclerotic heart disease of native coronary artery without angina pectoris; I70.219 Atherosclerosis of native arteries of extremities with intermittent claudication, unspecified extremity; E78.5 Hyperlipidemia, unspecified; K21.9 Gastro-esophageal reflux disease without esophagitis; E66.9 Obesity, unspecified; F17.210 Nicotine dependence, cigarettes, uncomplicated; I25.2 Old myocardial infarction; Z95.5 Presence of coronary angioplasty implant and graft; Z82.49 Family history of ischemic heart disease and other diseases of the circulatory system
CPT/HCPCS: 31720; 36415; 71010; 71020; 80048; 80053; 80061; 81001; 82330; 82803; 82805; 82947; 82962; 83036; 83735; 84132; 84295; 84460; 84484; 85014; 85018; 85025; 85049; 85347; 85610; 85730; 86850; 86900; 86901; 87641; 93005; 93312; 93320; 93325; 93458; 93880; 94002; 94010; 94640; 94660; 94667; 94668; 94770; 96374; 96375; 99152; 99153; 99291; A9270-GY; C1713; C1769; C1894; C8929; J0690; J1644; J1940; J2150; J2250; J2370; J2405; J2440; J2720; J2795; J2930; J3010; J3475; J3480; P9045; P9047; Q9957; Q9967